=== PATIENT | female | born 1955 | race Asian ===

== ENCOUNTER 2018-11-10 06:47 | Day surgery (SDC) | payer BC ==
[~2018-11-10] VITALS: Ht 157.5 cm; Wt 45.5 kg
[2018-11-10 07:58] VITALS: Ht 157.5 cm; Wt 45.5 kg
[2018-11-10] MEDS ORDERED: PREDNISONE (08:08)
[2018-11-10] MEDS ORDERED: FOLIC ACID (08:08)
[2018-11-10] MEDS ORDERED: MAGNESIUM (08:08)
[2018-11-10] MEDS ORDERED: NORVASC (08:08)
[2018-11-10] MEDS ORDERED: FERROUS SULFATE (08:08)
[2018-11-10] MEDS ORDERED: PLAQUENIL (08:08)
[2018-11-10 08:29] VITALS: BP 135/65; PULSE 98; RESP 18
[2018-11-10] MEDS ORDERED: ETOMIDATE 20 MG INJ ONE (08:59)
[2018-11-10] MEDS ORDERED: FENTAnyl 50 MCG/ML VIAL ONE (08:59)
[2018-11-10] MEDS ORDERED: LIDOCAINE 1% (MDV) 20 ML INJ ONE (08:59)
[2018-11-10] MEDS ORDERED: PROPOFOL 200 MG INJ ONE (09:00)
--- NOTE | 2018-11-10 09:25 | PREAC ---
Date/Time of Note Date/Time of Note DATE: 11/10/18 TIME: 09:23 Anesthesia Eval and Record Evaluation Time Pre-Procedure Interview DATE: 11/10/18 TIME: 09:23 Age 63 Sex female NPO: 8 hrs Preoperative diagnosis reflux esophagitis and anemia Planned procedure egd and colonoscopy Past Medical History Past Medical History: Includes Cardio: Other (baseline high heart rate ) Neuro: Other (polyneuropathy ) Musculoskeletal: Other (systemic lupua ) Surgery & Anesthesia Issues No known issue Meds Anticoagulation: No Beta Jose Roberto within 24 hr: No Reason Beta Jose Roberto not given: Hypotension Reported Medications [Plaquenil] No Conflict Check 11/10/18 [Ferrous Sulfate] No Conflict Check 11/10/18 [Prednisone] No Conflict Check 11/10/18 [Magnesium] No Conflict Check 11/10/18 [Folic Acid] No Conflict Check 11/10/18 [Norvasc] No Conflict Check 11/10/18 Meds reviewed: Yes Allergies Coded Allergies: codeine (Verified Allergy, Unknown, 11/10/18) Allergies Reviewed: Yes Labs/Studies Labs Reviewed: Reviewed by anesthesiologist test: N/A Pre-procedure Exam Last vitals Vital Signs Date Temp Pulse Resp B/P (MAP) Pulse Ox O2 O2 Flow FiO2 Time Delivery Rate 11/10/18 97.6 98 18 135/65 99 Room Air 08:29 (88) Airway: Adequate mouth opening, Adequate thyromental dist Mallampati: Mallampati II Teeth: Normal Lung: Normal Heart: Normal ASA Physical Status ASA physical status: 3 Emergency: None Pre-operative Attestations Prior to commencing anesthesia and surgery, the patient was re-evaluated, there was verification of: *The patient's identity *The results of appropriate recent lab work and preoperative vital signs *The above evaluation not changing prior to induction *Anesthetic plan, risk benefits, alternative and complications discussed with patient/family; questions answered; patient/family understands, accepts and wishes to proceed. ERIC PIZANO DO Nov 10, 2018 09:25
--- NOTE | 2018-11-10 10:05 | PAC ---
Date/Time of Note Date/Time of Note DATE: 11/10/18 TIME: 10:05 Post-Anesthesia Notes Post-Anesthesia Note Last documented vital signs Vital Signs Date Temp Pulse Resp B/P (MAP) Pulse Ox O2 O2 Flow FiO2 Time Delivery Rate 11/10/18 98 95 18 129/62 99 Room Air 100 Activity: WNL Respiratory function: WNL Cardiovascular function: WNL Mental status: Baseline Pain reasonably controlled: Yes Hydration appropriate: Yes Nausea/Vomiting absent: Yes ERIC PIZANO DO Nov 10, 2018 10:05
[2018-11-10 10:18] VITALS: BP 94/54; PULSE 98; RESP 18
== END 2018-11-10 12:32 | disposition home or self-care (01) ==
LOC: GIL 06:47
PROVIDERS: ATTEND Internal Medicine Gastroenterology
DX: D50.9 Iron deficiency anemia, unspecified (principal); K62.3 Rectal prolapse; K44.9 Diaphragmatic hernia without obstruction or gangrene; K21.0 Gastro-esophageal reflux disease with esophagitis; K29.30 Chronic superficial gastritis without bleeding
CPT/HCPCS: 43239; 45378; 88305; 88312; J3010; Z7610